=== PATIENT | female | born 1960 | race Caucasian/White ===

== ENCOUNTER 2017-03-07 23:07 | Emergency (ER) | payer OTHER, BC ==
[~2017-03-07] VITALS: Ht 154.9 cm; Wt 65.8 kg
[2017-03-07 23:45] VITALS: BP_SYST 128
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
--- NOTE | 2017-03-07 23:45 | NUR ---
PT AMBULATED TO BED 7 FOR EVALUATION
[2017-03-07] MEDS ORDERED: ALBU8.5H8 INH (23:53)
--- NOTE | 2017-03-08 00:08 | NUR ---
ER at bedside examining patient.
[2017-03-08] MEDS: IBUPROFEN 800 MG TABLET PO ONE (00:18)
[2017-03-08] MEDS: IPRATROPIUM/ALBUTEROL SULFATE 3 ML AMPUL.NEB INH ONE (00:19)
--- NOTE | 2017-03-08 00:30 | NUR ---
Patient transported to radiology via WC, accompanied by RADIOLOGY.
--- NOTE | 2017-03-08 00:45 | NUR ---
Returned from radiology, back to [facility].
[2017-03-08 01:00] VITALS: BP_SYST 127
--- NOTE | 2017-03-08 01:00 | NUR ---
Patient given written and verbal discharge instructions and verbalizes understanding. ER MD discussed with patient the results and treatment provided. Patient in stable condition. ID arm band removed. Rx of ALBUTEROL,MOTRIN, TRAMADOL given. Patient educated on pain management and to follow up with PMD. Pain Scale 0/10 Opportunity for questions provided and answered.
== END 2017-03-08 01:00 | disposition home or self-care (01) ==
LOC: SED 23:07
DX: S14.5XXA Injury of cervical sympathetic nerves, initial encounter (principal); E11.9 Type 2 diabetes mellitus without complications; E03.9 Hypothyroidism, unspecified; J45.901 Unspecified asthma with (acute) exacerbation; R11.0 Nausea; V49.9XXA Car occupant (driver) (passenger) injured in unspecified traffic accident, initial encounter; R06.2 Wheezing; Y93.89 Activity, other specified; Y92.410 Unspecified street and highway as the place of occurrence of the external cause; Y99.8 Other external cause status
CPT/HCPCS: 72040-TC; 82962; 94640; 99284

== ENCOUNTER 2017-04-24 23:09 | Emergency (ER) | payer OTHER, BC ==
[~2017-04-24] VITALS: Ht 154.9 cm; Wt 72.6 kg
[~2017-04-24 23:09] MED LIST: ALBU8.5H8 INH
[2017-04-24 23:10] VITALS: BP_SYST 153
[2017-04-25 01:38] VITALS: BP_SYST 139
== END 2017-04-25 01:38 | disposition home or self-care (01) ==
LOC: SED 23:09
DX: S63.591A Other specified sprain of right wrist, initial encounter (principal); M54.5 Low back pain; J45.909 Unspecified asthma, uncomplicated; E11.9 Type 2 diabetes mellitus without complications; E03.9 Hypothyroidism, unspecified; Z98.84 Bariatric surgery status; W18.39XA Other fall on same level, initial encounter; Y93.89 Activity, other specified; Y92.512 Supermarket, store or market as the place of occurrence of the external cause; Y99.8 Other external cause status
CPT/HCPCS: 71045; 72110; 99284